=== PATIENT | female | born 1955 | race Caucasian/White ===

== ENCOUNTER 2017-01-02 15:13 | Emergency (ER) | payer OTHER ==
[~2017-01-02 15:13] MED LIST: ACIDOPHILUS1 EACH PO; AMITIZA24 MCG PO; COLACE100 MG PO; COUMADIN3 MG PO; COUMADIN4 MG PO; DEXILANT60 MG PO; KEPPRA1000 MG PO; LEVAQUIN750 MG PO; POLYETHYLENE GL17 GM PO; POTASSIUM20 MEQ/15 PO; REGLAN10 MG PO; SYNTHROID50 MCG PO; TYLENOL325 MG PO; VITAMIN D3400 UNI1 PO
== END 2017-01-02 16:20 | disposition home or self-care (01) ==
LOC: ER 15:13
DX: H92.22 Otorrhagia, left ear (principal); S00.412A Abrasion of left ear, initial encounter; I10 Essential (primary) hypertension; I48.91 Unspecified atrial fibrillation; K21.9 Gastro-esophageal reflux disease without esophagitis; Z79.01 Long term (current) use of anticoagulants; Z79.899 Other long term (current) drug therapy; Z88.1 Allergy status to other antibiotic agents; Z91.041 Radiographic dye allergy status; Z91.048 Other nonmedicinal substance allergy status; X58.XXXA Exposure to other specified factors, initial encounter